=== PATIENT | female | born 1930 | race Caucasian/White ===

== ENCOUNTER 2017-10-14 02:43 | Inpatient (IN) | payer MEDICARE, BC ==
[~2017-10-14] VITALS: Ht 167.6 cm; Wt 83.9 kg
--- NOTE | ~2017-10-14 | HP ---
PATIENT: DAVID COOPER MEDICAL RECORD: [id number] ACCOUNT: [id number] LOCATION:[facility].E11- : 30 ADMISSION DATE: 10/14/17 HISTORY AND PHYSICAL EXAMINATION DATE OF ADMISSION: 10/14/17 CHIEF COMPLAINT: Left hip pain. HISTORY OF PRESENT ILLNESS: This 87-year-old fell in her home early this morning. She complains of left hip pain. She is unable to walk or bear weight on that leg. She was brought in to the Emergency Department and x-ray shows a femoral neck fracture of the left hip. She is admitted. PAST MEDICAL HISTORY: She has hypertension, osteoarthritis, hyperlipidemia, coronary artery disease. PAST SURGICAL HISTORY: She has had coronary stents by Dr. Peck. She has had a hernia repair in the 1950s, appendectomy, tonsillectomy, hysterectomy. CURRENT MEDICATIONS: She takes nothing. She has been on Plavix and metoprolol in the past, but stopped taking those months ago, if not longer. ALLERGIES: PENICILLIN. HABITS: Never smoked. No alcohol or drugs. SOCIAL HISTORY: She is a retired middle school science teacher. She is . FAMILY HISTORY: Father at 84 of cancer. Mother at 80 during coronary artery bypass surgery. Sister with history of cancer. Brother with history of heart disease. REVIEW OF SYSTEMS: GENERAL: No major weight changes. HEENT: No particular sinus or allergy problems. RESPIRATORY: No history of emphysema or asthma. CARDIAC: See above history. GASTROINTESTINAL: No diarrhea, constipation, or reflux. GENITOURINARY: No significant problems there. MUSCULOSKELETAL: Has a few arthritic aches and pains. NEUROLOGIC: No migraines or seizures. PSYCHIATRIC: Denies depression or melancholia. PHYSICAL EXAMINATION: VITAL SIGNS: Temperature 98.4, pulse 76, respirations 17, blood pressure 120/56, O2 sat 95%. GENERAL: She is awake and alert, does not appear to be in acute distress. at bedside. HEENT: Grossly within normal limits. NECK: Supple. HEART: Regular rate and rhythm without murmur. LUNGS: Clear. ABDOMEN: Soft, flat, nontender. EXTREMITIES: There is some tenderness in the left hip area. There is no lower HISTORY AND PHYSICAL [id number] DAVID COOPER extremity edema. LABORATORY DATA: Urinalysis essentially unremarkable. CBC with a white count of 10,700, hemoglobin 14.4, hematocrit 42.8, platelets are normal. Basic metabolic panel is all within normal limits. Liver enzymes were all normal. X-ray of the left hip shows left femoral neck fracture without dislocation. X-ray of the lumbar spine for low back pain shows degenerative changes in the lumbar spine. Chest x-ray: No acute cardiopulmonary abnormality seen. ASSESSMENT: 1. Left hip fracture. 2. History of coronary artery disease. PLAN: She is admitted. Orthopedics has been consulted and she has already been seen by them. We will get a cardiac clearance with her history of heart disease. Other tests as warranted. TRANSINT:[id number] Voice Confirmation ID: [id number] DOCUMENT ID: [id number] MACO RODRIGUEZ MD at 1655 CC: [id number] DICTATION DATE: 10/14/17 1320 EDUCATION PROFESSOR: 10/14/17 1341 ADM IN [place] [id number] [place] [id number]
[~2017-10-14 02:43] MED LIST: PLAVIX75 MG PO; TOPROL XL50 MG PO
[2017-10-14 04:13] LABS: BASOPHILS 0.1 % (0-2); EOSINOPHILS 0.7 % (0-7); HEMATOCRIT 42.8 % (36.0-48.0); HEMOGLOBIN 14.4 g/dL (12-16); IMMATURE GRANULOCYTES 0.5 % (0-5); LYMPHOCYTES 12.6 % (15-50); MCH 31.2 pg (26.0-34.0); MCHC 33.6 g/dL (31.0-37.0); MCV 92.6 fL (80.0-100.0); MEAN PLATELET VOLUME 10.3 fL (7.4-10.4); MONOCYTES 6.4 % (2-11); NEUTROPHILS 79.7 % (40-80); PLATELET COUNT 181 10x3/uL (130-400); RBC 4.62 10x6/uL (4.00-5.40); RDW 13.3 % (11.5-14.5); WBC 10.7 10x3/uL (4.8-10.8)
[2017-10-14 04:23] LABS: ALBUMIN 3.6 g/dL (3.4-5.0); ANION GAP 10.6 mmol/L (8-16); BILIRUBIN - TOTAL 0.31 mg/dL (0.2-1.3); CALCIUM 8.9 mg/dL (8.5-10.1); CARBON DIOXIDE 29.5 mmol/L (21.0-32.0); POTASSIUM - SERUM 4.1 mmol/L (3.5-5.1)
[2017-10-14 05:04] LABS: APPEARANCE CLEAR (CLEAR); BILIRUBIN NEGATIVE (NEGATIVE); COLOR STRAW (YELLOW); GLUCOSE 50 mg/dL (NEGATIVE); KETONE NEGATIVE (NEGATIVE); NITRITE NEGATIVE (NEGATIVE); PROTEIN TRACE mg/dL (NEGATIVE); UROBILINOGEN NORMAL (NORMAL)
[2017-10-14 05:05] LABS: BACTERIA NONE SEEN /hpf (NONE SEEN); EPITHELIAL CELLS 0-5 /hpf (0-5); RED CELLS - URINE 0-5 /hpf (0-5); WHITE CELLS - URINE NSEEN /hpf (0-5)
[2017-10-14 07:07] VITALS: BP 120/56
[2017-10-14 08:54] VITALS: BP 141/73
[2017-10-14 10:16] VITALS: BP 158/71
[2017-10-14 19:00] VITALS: BP 149/72
[2017-10-15] VITALS (11 sets, daily range): BP systolic 125–182; BP diastolic 62–91; Ht 167.6 cm; Wt 83.9 kg
[2017-10-15] MEDS ORDERED: AMBIEN10 MG PO (17:20)
[2017-10-15] MEDS ORDERED: NEURONTIN250 MG/5 M PO (17:21)
[2017-10-16] VITALS (10 sets, daily range): BP systolic 89–217; BP diastolic 41–103
[2017-10-16 05:40] LABS: BASOPHILS 0.1 % (0-2); EOSINOPHILS 0 % (0-7); HEMATOCRIT 42.8 % (36.0-48.0); HEMOGLOBIN 14.5 g/dL (12-16); IMMATURE GRANULOCYTES 0.2 % (0-5); LYMPHOCYTES 4.7 % (15-50); MCH 31.1 pg (26.0-34.0); MCHC 33.9 g/dL (31.0-37.0); MCV 91.8 fL (80.0-100.0); MEAN PLATELET VOLUME 10.5 fL (7.4-10.4); MONOCYTES 10.7 % (2-11); NEUTROPHILS 84.3 % (40-80); PLATELET COUNT 151 10x3/uL (130-400); RBC 4.66 10x6/uL (4.00-5.40); RDW 13.3 % (11.5-14.5)
[2017-10-16 06:19] LABS: ALBUMIN 2.8 g/dL (3.4-5.0); ANION GAP 12.9 mmol/L (8-16); BILIRUBIN - TOTAL 0.83 mg/dL (0.2-1.3); CALCIUM 8.5 mg/dL (8.5-10.1); CARBON DIOXIDE 29.4 mmol/L (21.0-32.0); CREATININE - SERUM 1.1 mg/dL (0.6-1.3); POTASSIUM - SERUM 4.3 mmol/L (3.5-5.1); PROTEIN - SERUM 6.7 g/dL (6.4-8.2)
[2017-10-17] VITALS: BP 129/60
[2017-10-17 04:00] VITALS: BP 160/68
[2017-10-17 06:00] LABS: BASOPHILS 0 % (0-2); EOSINOPHILS 1.8 % (0-7); HEMATOCRIT 38.6 % (36.0-48.0); HEMOGLOBIN 13.2 g/dL (12-16); IMMATURE GRANULOCYTES 0.2 % (0-5); LYMPHOCYTES 7.2 % (15-50); MCH 31.1 pg (26.0-34.0); MCHC 34.2 g/dL (31.0-37.0); MCV 90.8 fL (80.0-100.0); MEAN PLATELET VOLUME 10.5 fL (7.4-10.4); NEUTROPHILS 78.8 % (40-80); PLATELET COUNT 146 10x3/uL (130-400); RBC 4.25 10x6/uL (4.00-5.40); RDW 13.6 % (11.5-14.5)
[2017-10-17 06:13] LABS: WBC 9.5 10x3/uL (4.8-10.8)
[2017-10-17 08:22] VITALS: BP 156/69
[2017-10-17 12:56] VITALS: BP 129/56
[2017-10-17] MEDS ORDERED: ASPIRIN325 MG PO (13:36)
[2017-10-17] MEDS ORDERED: NORCO 7.5/325 T1 TA1 PO (13:36)
[2017-10-17 16:21] VITALS: BP 136/71
== END 2017-10-17 19:10 | DRG 470 ==
LOC: D.ER 02:43 → D.EDHOLD 04:17 → D.MS 04:17
PROVIDERS: Family Medicine; Orthopaedic Surgery
PROC: 0SRS0JZ Replacement of Left Hip Joint, Femoral Surface with Synthetic Substitute, Open Approach (ICD-10-PCS; principal; 2017-10-15 09:00)
DX: S72.002A Fracture of unspecified part of neck of left femur, initial encounter for closed fracture (principal); W01.0XXA Fall on same level from slipping, tripping and stumbling without subsequent striking against object, initial encounter; I10 Essential (primary) hypertension; M19.90 Unspecified osteoarthritis, unspecified site; E78.5 Hyperlipidemia, unspecified; I25.10 Atherosclerotic heart disease of native coronary artery without angina pectoris

== ENCOUNTER 2017-10-17 16:39 | Inpatient (IN) | payer MEDICARE, BC ==
[~2017-10-17] VITALS: Ht 167.6 cm; Wt 83.9 kg
--- NOTE | ~2017-10-17 | RHP ---
PATIENT: DAVID COOPER MEDICAL RECORD: [id number] ACCOUNT: [id number] LOCATION:[facility]15 : 30 ADMISSION DATE: 10/17/17 REHABILITATION HISTORY AND PHYSICAL EXAMINATION POST ADMISSION PHYSICIAN EXAMINATION DATE OF ADMISSION: 10/17/2017 ADMITTING DIAGNOSES: Left femoral neck fracture status post left hip hemiarthroscopy. HISTORY OF PRESENT ILLNESS: The patient is an 87-year-old female patient admitted with a femoral neck fracture, status post left hip bipolar hemiarthroscopy. On 10/14/2017, she fell at home around 1. Denied any loss of conscious, presented to the Emergency Room with complaints of left hip pain. She was unable to walk or bear weight. She was brought to the Emergency Room and x-ray showed femoral neck fracture of the left hip. She was admitted and both cardiology and orthopedic consults were done upon preop clearance from cardiology, Dr. Stringer. He noted that she was known to their history with history of coronary artery disease status post bare-metal stent to her circumflex in 2014. She had a history of hypertension, also history of hyperlipidemia. She was cleared with a moderate risk due to advanced age and multiple comorbid conditions on 10/15/2017, she underwent surgery of her left hip. She is currently postop day #2. She has had some confusion and lethargy postop, but expected to progress well. Prior to this illness, she was living with her spouse independently yet required supervision with bathing. She has a strong family support. Plans to return back home with her at her prior level of functioning. She is currently max to total assist for mobility and moderate to max assist with ADLs. She required intensive therapy to regain her strength, endurance and balance. She is also requiring speech therapy to work with her cognition and memory, was noted by one of our finest nurses here in the unit also that she has got a lot of weakness to her upper extremities at this time. COMORBIDITIES: In this patient include closed left hip fracture, hypertension, confusion, advanced-aged, dementia, debility, self-care deficit, and weakness. PAST MEDICAL HISTORY: Significant for hypertension, osteoarthritis, hyperlipidemia, coronary artery disease, vertigo, weakness, urinary incontinence, diverticulitis, dementia. PAST SURGICAL HISTORY: Includes coronary artery stents, hernia repair, appendectomy, tonsillectomy and hysterectomy. ALLERGIES: PENICILLIN AND ADHESIVE TAPE. CURRENT MEDICATIONS: Just MiraLax 17 grams in 8 ounce of water daily, zolpidem 10 mg at bedtime. She is on hydrocodone 7.5 one tab every 4 hours p.r.n., Neurontin 300 mg b.i.d. and aspirin 325 mg daily. HABITS: No current alcohol or tobacco use. FAMILY HISTORY: Noncontributory. SOCIAL HISTORY: The patient hopes to return back home with her and get HISTORY AND PHYSICAL [id number] JEFFRYAdrianDAVID back to her prior level of functioning. REVIEW OF SYSTEMS: GENERAL: Does complain of some weakness. HEENT: Denies cold, cough, or congestion. CARDIOVASCULAR: Denies chest pain. PHYSICAL EXAMINATION: VITAL SIGNS: Stable, afebrile. GENERAL: An elderly female who is in no acute distress. NEUROLOGIC: She does have noted weakness and some confusion. HEENT: Normocephalic and atraumatic. Mucosa moist. NECK: Supple. No lymphadenopathy. LUNGS: Clear at this time. HEART: Regular rate and rhythm. ABDOMEN: Benign. EXTREMITIES: No clubbing, cyanosis or edema. NEUROLOGIC: She does have noted weakness, especially in her upper extremities, can barely raise her arms. She has noted weakness also in her lower extremities. Her postop swelling appears normal. LABORATORY DATA: Her white count is 9.3, H&H of 13 and 39, and platelet count is noted to be 178. Sodium 134, potassium 4.3, BUN and creatinine of 35 and 1.2, and blood sugar is noted to be 182. ASSESSMENT: This is an 87-year-old female patient admitted to rehab with a working diagnosis of status post left hip fracture with a total hip arthroplasty. The patient continued to make improvement. We instituted the following multidisciplinary therapies including but not limited to physical, occupational, respiratory, speech, nutritional services, prosthetics and orthotics. Given her complex medical condition and risk for more complications, rehabilitation services cannot be provided at a low level of care such as a skilled nurse facility. PLAN: 1. Admit to [facility] for intensive inpatient therapy to include the following disciplines: A. Physical therapy to improve gait, all transfer skills and bed mobility to a modified independent level. B. Occupational therapy to a modified independent level. C. Case management to assist with discharge planning and placement options. D. Nutrition to assist with nutritional needs. E. Rehabilitation nursing to assist in monitoring the patient's underlying medical conditions and to assist with any type of bowel or bladder management. 2. The patient's current medication and medical care will be continued. 3. The patient will be placed on standard fall precautions. 4. The patient's estimated length of stay is approximately 7 to 10 days. 5. I am going to probably get a CT of her head without contrast and make sure that nothing acute has happened. We will discuss with her family and treat appropriately. TRANSINT:[id number] Voice Confirmation ID: [id number] DOCUMENT ID: [id number] YAYA notes whether there has been none or any medical/functional HISTORY AND PHYSICAL [id number] DAVID COOPER change since admission: - No change since preadmission screen. YAYA attests patient continues to be appropriate for IRF: - Continues to be appropriate. WILLEI HAY MD at 1809 CC: [id number] DICTATION DATE: 10/18/17 0931 COOK HELPER: 10/18/17 1007 DIS IN 10/31/17 [place] [id number] [place] [address]
[~2017-10-17 16:39] MED LIST changes: +AMBIEN10 MG PO; +ASPIRIN325 MG PO; +NEURONTIN250 MG/5 M PO; +NORCO 7.5/325 T1 TA1 PO
[2017-10-18 01:57] VITALS: BP 148/54; BMI 29.9
[2017-10-18 06:01] LABS: BASOPHILS 0.1 % (0-2); HEMATOCRIT 38.8 % (36.0-48.0); HEMOGLOBIN 13.3 g/dL (12-16); IMMATURE GRANULOCYTES 0.2 % (0-5); LYMPHOCYTES 10.1 % (15-50); MCHC 34.3 g/dL (31.0-37.0); MCV 90.4 fL (80.0-100.0); MEAN PLATELET VOLUME 10.4 fL (7.4-10.4); MONOCYTES 13.6 % (2-11); RBC 4.29 10x6/uL (4.00-5.40); RDW 13.4 % (11.5-14.5); WBC 9.3 10x3/uL (4.8-10.8)
[2017-10-18 06:25] LABS: ANION GAP 9.3 mmol/L (8-16); CALCIUM 8.5 mg/dL (8.5-10.1); CREATININE - SERUM 1.2 mg/dL (0.6-1.3); POTASSIUM - SERUM 4.3 mmol/L (3.5-5.1)
[2017-10-18 06:27] LABS: PLATELET COUNT 178 10x3/uL (130-400)
[2017-10-18 08:00] VITALS: BP 122/67
[2017-10-18 10:28] VITALS: Ht 167.6 cm; Wt 83.9 kg
[2017-10-18 17:07] LABS: APPEARANCE HAZY (CLEAR); BILIRUBIN NEGATIVE (NEGATIVE); COLOR AMBER (YELLOW); GLUCOSE NEGATIVE (NEGATIVE); KETONE NEGATIVE (NEGATIVE); NITRITE NEGATIVE (NEGATIVE); PROTEIN TRACE mg/dL (NEGATIVE); UROBILINOGEN NORMAL (NORMAL)
[2017-10-18 17:09] LABS: BACTERIA MODERATE /hpf (NONE SEEN); EPITHELIAL CELLS 0-5 /hpf (0-5); RED CELLS - URINE >50 /hpf (0-5); WHITE CELLS - URINE 0-5 /hpf (0-5)
[2017-10-19 06:16] LABS: BASOPHILS 0.2 % (0-2); EOSINOPHILS 3.4 % (0-7); HEMATOCRIT 36.2 % (36.0-48.0); HEMOGLOBIN 12.1 g/dL (12-16); IMMATURE GRANULOCYTES 0.5 % (0-5); LYMPHOCYTES 14.5 % (15-50); MCH 30.9 pg (26.0-34.0); MCHC 33.4 g/dL (31.0-37.0); MCV 92.3 fL (80.0-100.0); MEAN PLATELET VOLUME 10.4 fL (7.4-10.4); MONOCYTES 13.4 % (2-11); PLATELET COUNT 188 10x3/uL (130-400); RBC 3.92 10x6/uL (4.00-5.40); RDW 13.6 % (11.5-14.5); WBC 9.6 10x3/uL (4.8-10.8)
[2017-10-19 07:28] LABS: ANION GAP 10.8 mmol/L (8-16); CALCIUM 8.2 mg/dL (8.5-10.1); CARBON DIOXIDE 29.8 mmol/L (21.0-32.0); CREATININE - SERUM 1.2 mg/dL (0.6-1.3); POTASSIUM - SERUM 4.6 mmol/L (3.5-5.1)
[2017-10-19 08:11] VITALS: BP 149/63
[2017-10-19 18:00] VITALS: BP 144/60
[2017-10-20 07:52] VITALS: BP 160/55
[2017-10-20 19:00] VITALS: BP 133/58
[2017-10-21 07:22] LABS: BASOPHILS 0.2 % (0-2); EOSINOPHILS 4.6 % (0-7); HEMATOCRIT 35.8 % (36.0-48.0); IMMATURE GRANULOCYTES 1.2 % (0-5); LYMPHOCYTES 16.9 % (15-50); MCH 30.9 pg (26.0-34.0); MCHC 33.5 g/dL (31.0-37.0); MCV 92.3 fL (80.0-100.0); MONOCYTES 10.4 % (2-11); NEUTROPHILS 66.7 % (40-80); RBC 3.88 10x6/uL (4.00-5.40); RDW 13.5 % (11.5-14.5); WBC 9.9 10x3/uL (4.8-10.8)
[2017-10-21 07:26] LABS: PLATELET COUNT 240 10x3/uL (130-400)
[2017-10-21 07:48] LABS: ANION GAP 10.7 mmol/L (8-16); CALCIUM 8.7 mg/dL (8.5-10.1); CREATININE - SERUM 1.1 mg/dL (0.6-1.3); POTASSIUM - SERUM 3.7 mmol/L (3.5-5.1)
[2017-10-21 08:00] VITALS: BP 154/68
[2017-10-21 18:00] VITALS: BP 122/57
[2017-10-22 08:22] VITALS: BP 143/69
[2017-10-22 18:00] VITALS: BP 157/64
[2017-10-23 08:04] VITALS: BP 136/58
[2017-10-23 18:00] VITALS: BP 136/56
[2017-10-24 06:37] LABS: BASOPHILS 0.3 % (0-2); EOSINOPHILS 4.5 % (0-7); HEMATOCRIT 30.9 % (36.0-48.0); HEMOGLOBIN 10.2 g/dL (12-16); IMMATURE GRANULOCYTES 2.1 % (0-5); LYMPHOCYTES 18.1 % (15-50); MCH 30.4 pg (26.0-34.0); MEAN PLATELET VOLUME 9.8 fL (7.4-10.4); MONOCYTES 10.2 % (2-11); NEUTROPHILS 64.8 % (40-80); PLATELET COUNT 277 10x3/uL (130-400); RBC 3.36 10x6/uL (4.00-5.40); RDW 13.3 % (11.5-14.5); WBC 11.2 10x3/uL (4.8-10.8)
[2017-10-24 06:50] LABS: ANION GAP 8.6 mmol/L (8-16); CALCIUM 8.4 mg/dL (8.5-10.1); CARBON DIOXIDE 29.6 mmol/L (21.0-32.0); CREATININE - SERUM 1.1 mg/dL (0.6-1.3); POTASSIUM - SERUM 4.2 mmol/L (3.5-5.1); URIC ACID 7.5 mg/dL (2.6-7.2)
[2017-10-24 08:13] VITALS: BP 126/90
[2017-10-24 18:00] VITALS: BP 152/54
[2017-10-25 08:00] VITALS: BP 153/69
[2017-10-25 23:06] VITALS: BP 140/59
[2017-10-26 08:24] VITALS: BP 153/63
[2017-10-26 08:33] VITALS: BP 135/67
[2017-10-27 00:19] VITALS: BP 118/70
[2017-10-27 06:53] LABS: ANION GAP 13.1 mmol/L (8-16); CALCIUM 8.2 mg/dL (8.5-10.1); CARBON DIOXIDE 26.4 mmol/L (21.0-32.0); POTASSIUM - SERUM 4.5 mmol/L (3.5-5.1)
[2017-10-27 07:12] LABS: BASOPHILS 0.2 % (0-2); EOSINOPHILS 3.9 % (0-7); HEMATOCRIT 29.4 % (36.0-48.0); HEMOGLOBIN 9.6 g/dL (12-16); IMMATURE GRANULOCYTES 1.3 % (0-5); LYMPHOCYTES 16.2 % (15-50); MCH 30.3 pg (26.0-34.0); MCHC 32.7 g/dL (31.0-37.0); MCV 92.7 fL (80.0-100.0); MEAN PLATELET VOLUME 9.5 fL (7.4-10.4); MONOCYTES 7.1 % (2-11); NEUTROPHILS 71.3 % (40-80); PLATELET COUNT 328 10x3/uL (130-400); RBC 3.17 10x6/uL (4.00-5.40); RDW 13.6 % (11.5-14.5); WBC 11.2 10x3/uL (4.8-10.8)
[2017-10-27 08:00] VITALS: BP 138/57
[2017-10-27 20:00] VITALS: BP 166/66
[2017-10-28 08:00] VITALS: BP 131/58
[2017-10-28 19:00] VITALS: BP 114/52
[2017-10-29 06:30] LABS: BASOPHILS 0.3 % (0-2); EOSINOPHILS 4.9 % (0-7); HEMATOCRIT 28.3 % (36.0-48.0); HEMOGLOBIN 9.2 g/dL (12-16); IMMATURE GRANULOCYTES 0.7 % (0-5); LYMPHOCYTES 19.2 % (15-50); MCH 30.5 pg (26.0-34.0); MCHC 32.5 g/dL (31.0-37.0); MCV 93.7 fL (80.0-100.0); MEAN PLATELET VOLUME 9.4 fL (7.4-10.4); MONOCYTES 7.6 % (2-11); NEUTROPHILS 67.3 % (40-80); PLATELET COUNT 364 10x3/uL (130-400); RBC 3.02 10x6/uL (4.00-5.40); RDW 13.7 % (11.5-14.5); WBC 10.3 10x3/uL (4.8-10.8)
[2017-10-29 06:38] LABS: ANION GAP 11.2 mmol/L (8-16); CALCIUM 8.1 mg/dL (8.5-10.1); CREATININE - SERUM 1.2 mg/dL (0.6-1.3); POTASSIUM - SERUM 4.2 mmol/L (3.5-5.1)
[2017-10-29 08:00] VITALS: BP 100/70
[2017-10-29 19:00] VITALS: BP 125/40
[2017-10-30 07:53] VITALS: BP 130/64
[2017-10-30 19:00] VITALS: BP 146/58
[2017-10-31 07:22] LABS: ANION GAP 9.4 mmol/L (8-16); CALCIUM 8.1 mg/dL (8.5-10.1); CARBON DIOXIDE 28.8 mmol/L (21.0-32.0); CREATININE - SERUM 1.2 mg/dL (0.6-1.3); POTASSIUM - SERUM 4.2 mmol/L (3.5-5.1)
[2017-10-31 07:52] LABS: BASOPHILS 0.2 % (0-2); EOSINOPHILS 4.2 % (0-7); HEMATOCRIT 27.1 % (36.0-48.0); HEMOGLOBIN 8.8 g/dL (12-16); IMMATURE GRANULOCYTES 0.2 % (0-5); LYMPHOCYTES 21.4 % (15-50); MCH 30.1 pg (26.0-34.0); MCHC 32.5 g/dL (31.0-37.0); MCV 92.8 fL (80.0-100.0); MEAN PLATELET VOLUME 9.4 fL (7.4-10.4); MONOCYTES 7.9 % (2-11); NEUTROPHILS 66.1 % (40-80); PLATELET COUNT 354 10x3/uL (130-400); RBC 2.92 10x6/uL (4.00-5.40); RDW 13.7 % (11.5-14.5); WBC 8.5 10x3/uL (4.8-10.8)
[2017-10-31 07:58] VITALS: BP 156/63
[2017-10-31] MEDS ORDERED: LOPRESSOR25 MG PO (08:35)
== END 2017-10-31 12:31 | DRG 560 ==
LOC: D.REHAB 16:39
PROVIDERS: Emergency Medicine
DX: S72.002D Fracture of unspecified part of neck of left femur, subsequent encounter for closed fracture with routine healing (principal); F05 Delirium due to known physiological condition; Z47.1 Aftercare following joint replacement surgery; Z96.642 Presence of left artificial hip joint; I10 Essential (primary) hypertension; F03.90 Unspecified dementia, unspecified severity, without behavioral disturbance, psychotic disturbance, mood disturbance, and anxiety; R53.81 Other malaise; R53.1 Weakness; I25.10 Atherosclerotic heart disease of native coronary artery without angina pectoris; E78.5 Hyperlipidemia, unspecified

== ENCOUNTER 2018-04-30 09:25 | Emergency (ER) | payer MEDICARE, BC ==
[~2018-04-30] VITALS: Ht 167.6 cm; Wt 72.7 kg
[~2018-04-30 09:25] MED LIST changes: +LOPRESSOR25 MG PO
[2018-04-30 09:28] VITALS: Ht 167.6 cm; Wt 72.7 kg
[2018-04-30 10:41] LABS: BASOPHILS 0.4 % (0-2); HEMATOCRIT 40.7 % (36.0-48.0); HEMOGLOBIN 13.5 g/dL (12-16); IMMATURE GRANULOCYTES 0.1 % (0-5); LYMPHOCYTES 27.2 % (15-50); MCH 29.8 pg (26.0-34.0); MCHC 33.2 g/dL (31.0-37.0); MCV 89.8 fL (80.0-100.0); MEAN PLATELET VOLUME 9.7 fL (7.4-10.4); MONOCYTES 8.2 % (2-11); NEUTROPHILS 61.1 % (40-80); RBC 4.53 10x6/uL (4.00-5.40); RDW 15.6 % (11.5-14.5); WBC 6.7 10x3/uL (4.8-10.8)
[2018-04-30 10:53] LABS: PLATELET COUNT 191 10x3/uL (130-400)
[2018-04-30 10:59] LABS: ALBUMIN 3.3 g/dL (3.4-5.0); ANION GAP 14.6 mmol/L (8-16); BILIRUBIN - TOTAL 0.4 mg/dL (0.2-1.3); CALCIUM 9.3 mg/dL (8.5-10.1); CARBON DIOXIDE 28.7 mmol/L (21.0-32.0); CREATININE - SERUM 1.2 mg/dL (0.6-1.3); POTASSIUM - SERUM 4.3 mmol/L (3.5-5.1); PROTEIN - SERUM 7.1 g/dL (6.4-8.2)
[2018-04-30 12:21] VITALS: BP 140/65
== END 2018-04-30 11:55 | disposition home or self-care (01) ==
LOC: D.ER 09:25
PROVIDERS: Emergency Medicine
DX: G81.91 Hemiplegia, unspecified affecting right dominant side (principal); I10 Essential (primary) hypertension; I45.10 Unspecified right bundle-branch block

== ENCOUNTER → 2018-05-05 09:43 | Outpatient (CLI) | payer MEDICARE, BC ==
[2018-04-30 09:28] VITALS: BMI 25.8
--- NOTE | 2018-05-07 10:22 | EC ---
PATIENT:DAVID COOPER DATE OF SERVICE: 05/05/18 SEX: F MEDICAL RECORD: [id number] DATE OF : 30 LOCATION:D[facility] AGE OF PATIENT: 88 ADMISSION DATE: 05/05/18 REFERRING PHYSICIAN: INTERPRETING PHYSICIAN: KELY LAN MD ECHOCARDIOGRAM REPORT ECHO CHARGES 4 ECHO COMPLETE Date: 05/05/18 CLINICAL DIAGNOSIS: TIA ECHOCARDIOGRAPHIC MEASUREMENTS (adult normal given) AC root (d.<3.7cm) 3.4 cm LV Septum d (<1.2 cm> 1.4 cm Valve Excursion 1.5 cm LV Septum (systole) 1.6 cm Left Atria (s.<4.0cm> 3.5 cm LVPW d(<1.2cm) 1.6 cm RV (d.<2.3cm) 36.7 cm LVPW (sytole) 1.7 cm LV diastole(<5.6CM) 3.7 cm MV E-F(>70mm/sec) cm LV systole 2.2 cm LVOT Diameter 1.4 cm MV exc.(>10mm) 1.3 cm Est.ejection fraction (50-75%) % DOPPLER: LVIT cm/sec A cm/sec E 67.0 cm/sec LA 80.0 cm/sec RVSP 83 mmHg LVOT cm/sec AOP1/2T 20 m/s Asc. Ao 129 cm/sec RVOT 152 cm/sec RA 74 cm/sec PA cm/sec AV Gradient Peak 9.20 mmHg AV Mean 4.48 mmHg AV Area 1.5 cm MV Gradient Peak 3.75 mmHg MV Mean 1.13 mmHg MV Area cm COMMENTS: Financial Investigator: Robert LAU Risk And Insurance Manager: 1 Dr. Lan TAPE# PACS Pericardial Effusion N DATE OF SERVICE: 05/05/2018 PROCEDURE: Echocardiogram. FINDINGS: 1. Left ventricular chamber size is within normal limits. Left ventricular systolic function is normal. Overall ejection fraction estimated at 60%. 2. Left atrium, right atrium and right ventricular chamber sizes are within normal limits. 3. Valvular structures have normal structure and motion. ECHOCARDIOGRAM REPORT [id number] DAVID COOPER 4. Doppler interrogation reveals trace mitral regurgitation, trace tricuspid regurgitation, no other valvular insufficiency or stenosis. Pulmonary systolic pressure is normal estimated at 20 mmHg. 5. No evidence of pericardial effusion or left ventricular thrombus. 6. No cardiac source of neurologic emboli. TRANSINT:[id number] Voice Confirmation ID: [id number] DOCUMENT ID: [id number] KELY LAN MD at 1022 CC: [id number] DICTATION DATE: 05/06/18 1154 MANUFACTURING AREA MANAGER: 05/06/18 1216 DEP CLI 05/05/18 [place] [id number] [place] [address]
== END | disposition home or self-care (01) ==
LOC: D.US 05-04 11:30 → D.ECHO 09:43 → D.US 10:05
PROVIDERS: ATTEND Family Medicine
DX: G45.9 Transient cerebral ischemic attack, unspecified (principal)